=== PATIENT | male | born 1970 | race Caucasian/White ===

== ENCOUNTER 2018-04-21 07:14 | Emergency (ER) | payer BC ==
[2018-04-21] MEDS ORDERED: Ondansetron ODT 8 MG TAB ONE (07:25)
[2018-04-21] MEDS ORDERED: Ketorolac Tromethamine 30 MG/ML VIAL ONE (07:25)
[2018-04-21 07:50] LABS: #Eosinphils 0.1 thou/uL (0.0-0.7); #Lymphocytes 1.6 thou/uL (1.20-3.40); #Monocytes 0.5 thou/uL (0.11-0.59); #Neutrophils 2.2 thou/uL (1.40-6.50); %Basophils 0.6 % (0.0-1.0); %Eosinophils 2.5 % (0.0-10.0); %Lymphocytes 36.5 % (21.0-51.0); %Monocytes 10.8 % (0.0-10.0); %Neutrophils 49.6 % (42.0-75.0); Hemoglobin 15.2 g/dL (14.0-18.0); Mean Corpuscular HGB CONC 33.2 g/dL (32.0-36.0); Mean Corpuscular Hemoglobin 29.4 pg (27.0-31.0); Mean Corpuscular Volume 88.7 fl (80.0-94.0); Mean Platelet Volume 6.7 fL (7.4-10.4); Platelet Count 201 thou/uL (130-400); RBC Distribution Width 11.8 % (11.5-14.5); Red Blood Cell (RBC) Count 5.17 mill/uL (4.70-6.10); White Blood Cell (WBC) Count 4.4 thou/uL (4.8-10.8)
[2018-04-21 08:07] LABS: ALT (SGPT) 29 U/L (8-55); AST (SGOT) 24 U/L (5-34); Albumin 4.3 g/dL (3.5-5.0); Alkaline Phosphatase 61 U/L (40-150); Anion Gap 15 mmol/L (10-20); BUN (Urea Nitrogen) 19 mg/dL (8.9-20.6); Bilirubin, Total 0.8 mg/dL (0.2-1.2); Calc. Creatinine Clearance 0 mL/min (70-130); Calcium 9.4 mg/dL (7.8-10.44); Carbon Dioxide 22 mmol/L (22-29); Chloride 104 mmol/L (98-107); Estimated GFR-MDRD 82; Globulin 2.6 g/dL (2.4-3.5); Glucose 140 mg/dL (70-105); Potassium 3.7 mmol/L (3.5-5.1); Protein, Total 6.9 g/dL (6.0-8.3); Sodium 137 mmol/L (136-145)
--- NOTE | 2018-04-21 08:28 | CT ---
CT ABDOMEN AND PELVIS NONCONTRAST: Date: 04/21/18 HISTORY: Right flank pain. FINDINGS: There is mild distention of the right renal collecting system and ureter to the level of a 0.5 cm otis culus at the L4 level. Right ureter beyond this point is decompressed. Left renal collecting system, ureter, and the urinary bladder are decompressed without stone apparent. Lack of contrast limits evaluation for other abnormalities. Small hiatal hernia. Arterial calcificati on. Diverticula arise from the colon. Cyst at the inferior pole of the left kidney now contains a sma ll amount of dependent calcification. IMPRESSION: Partial obstruction at a 5 mm mid right ureteral calculus. POS: [facility]
[2018-04-21 09:18] LABS: Bilirubin Negative (Negative); Blood, Urine Large (Negative); Clarity CLEAR (Clear); Glucose, Urine (Dipstick) Negative (Negative); Leukocyte Negative (Negative); Nitrite Negative (Negative); Protein, Urine (Dipstick) 30 mg/dL (Neg-Trace); Specific Gravity, Urine 1.025 (1.002-1.036); Urobilinogen 0.2 mg/dL (0.2-1.0)
[2018-04-21 09:21] LABS: Bacteria/HPF None Seen HPF (None Seen); Hyaline Casts/LPF 0-3 HYALINE CAST LPF (0-3 Hyaline); Pathc Cast-AUWi Flag 0.14 (0-2.49); RBC/HPF GREATER THAN 50-TNTC HPF (0-3); Squamous Epithelial 0-3 HPF (0-3); WBC/HPF 0-3 HPF (0-3)
== END 2018-04-21 11:10 | disposition home or self-care (01) ==
LOC: ERS 07:14
DX: N20.9 Urinary calculus, unspecified (principal); N23 Unspecified renal colic
CPT/HCPCS: 74176; 80053; 81003; 81015; 85025; 96361; 96374; 96375; J1885

== ENCOUNTER 2021-01-27 09:11 | Outpatient (CLI) | payer BC, OTHER | END 2021-01-27 09:12 | disposition home or self-care (01) | LOC: BICMRI 09:11 | PROVIDERS: ATTEND Neurological Surgery | DX: M54.5 Low back pain (principal); M47.816 Spondylosis without myelopathy or radiculopathy, lumbar region | CPT/HCPCS: 72148 ==